=== PATIENT | female | born 1935 | race Asian ===

== ENCOUNTER 2019-07-24 19:46 | Inpatient (IN) | payer OTHER ==
[~2019-07-24] VITALS: Ht 144.8 cm; Wt 56.2 kg
[2019-07-24 19:50] VITALS: Ht 144.8 cm; Wt 56.2 kg
--- NOTE | 2019-07-24 20:04 | NUR ---
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 SON IS AT BEDSIDE FOR TRANSLATION. PATIENT HAS NO C/O AT THIS TIME. PER SON PT WAS AT HOME AND STANDING WHEN SHE FELT DIZZY ALL OF A SUDDEN FAINTED AND WAS UNABLE TO SPEAK FOR 30 MIN S/P FAINTING SPELL. SON WAS ABLE TO CATCH HER MID FALL AND STATED HE LAID HER ON THE BED AND SHE WAS UNABLE TO ANSWER QUESTIONS FOR APPROX 30 MIN. PT CAME TO AFTER AND WAS "BACK TO NORMAL" PER SON. PT IS AAOX4, RESP E/U, DENIES DIZZINESS, WEAKNESS AND ANY PAIN. SON REPORTS HX OF HEP B AND DENIES ANY CARDIAC HX. PT WAS ABLE TO TRANSFER STEADILY FROM TO [facility]. PT CONNECTED TO FULL MONITOR. AWAITING MSE.
[2019-07-24 21:03] LABS: CALCIUM 8.9 mg/dL (8.5-10.1); CHLORIDE SERUM 105 mmol/L (98-107); GLUCOSE SERUM 114 mg/dL (74-106); POTASSIUM SERUM 3.6 mmol/L (3.5-5.1); SODIUM SERUM 140 mmol/L (136-145)
[2019-07-24 21:07] LABS: ALBUMIN 3.6 g/dL (3.4-5.0); ALKALINE PHOSPHATASE 86 U/L (46-116); ALT/SGPT 29 U/L (14-59); AST/SGOT 27 U/L (15-37); BILIRUBIN TOTAL 0.5 mg/dL (0.20-1.00); CHOLESTEROL 192 mg/dL (<200)
[2019-07-24 21:11] LABS: BASOPHIL % 0.3 % (0-2); PLATELET COUNT 214 x10^3mcL (130-400); RED CELL DISTRIBUTION WIDTH 12.8 % (11.5-14.5)
--- NOTE | 2019-07-24 21:14 | NUR ---
PT INSTRUCTED TO PROVIDE URINE SAMPLE VALERY.
--- NOTE | 2019-07-24 22:29 | NUR ---
PT AMBULATED TO RESTROOM BY EVELYN CLAUDIO AND PTS SON. UPON AMBULATION BACK TO BED PER DIVYA GOMEZ PATIENT STOPPED WALKING AND STOPPED RESPONDING TO QUESTIONS. ASSISTED BACK TO BED WITH THE USE OF A WHEELCHAIR. UPON MOVING PT BACK INTO BED PT EXPERIENCED BILATERAL LEG JERKING FOR APPROX 1 SECOND WITH SECRETIONS EXCRETED FROM MOUTH. PT BEGAN TO SPEAK WITH SON AT THIS TIME. POSITIONED IN BED. CONNECTED TO MONITOR, FULL SET OF VITAL SIGNS TAKEN. DR GARCIA AT BEDSIDE TO FURTHER ASSESS.
--- NOTE | 2019-07-24 22:30 | NUR ---
1L NS STARTED AT THIS TIME PER DR GARCIA VERBAL ORDER.
--- NOTE | 2019-07-24 22:44 | NUR ---
2ND PIV ATTEMPT X3 UNSUCCESSFUL. IV TO RFA 20G REMAINS PATENT.
--- NOTE | 2019-07-24 22:49 | NUR ---
LAB AT BEDSIDE.
[2019-07-24 23:07] LABS: UA SPECIFIC GRAVITY 1.025 (1.005-1.035); microscopic required? YES; urine erythrocyte 1+ (NEGATIVE)
--- NOTE | 2019-07-25 00:38 | NUR ---
PT MEDICATED PER EMAR ORDERS. SEE EMAR. PT IS RESTING IN POSITION OF COMFORT. PT RESPS ARE E/U PT HAS SON AT BEDSIDE. CALL LIGHT WITHIN REACH. NO ACD NOTED
--- NOTE | 2019-07-25 01:01 | NUR ---
REPORT GIVEN TO DIVYA CAPONE.
--- NOTE | 2019-07-25 01:28 | NUR ---
US AT BEDSIDE.
[2019-07-25 02:28] VITALS: BP 153/68
--- NOTE | 2019-07-25 03:26 | NUR ---
ADMITTED A PATIENT TO THE FLOOR AND WAS ACCOMPANIED BY THE NURSE AND THE ER PERSONEL AND THE SON,PT WAS TRANSFER TO THE BED,PATIENT WAS MADE COMFORTABLE IN BED AND TELE MONITOR WAS ON AND WAS MADE COMFORATBLE IN BED.ON INMITAIL ASSESSMENT PATIENT IS AAO AND INFORMATION GIVEN BY THE NURSE PATIENT SPEAKS ONLY LATVIAN,PT HAD HL TO THE RT WRIST WITH THE SITE PATENT AND INTACT, REG REG RESP NO SOB,ABDO IS SOFT WITH ACTIVE BOWEL SOUNDS,SKIN IS WARM DRY TO TOUCH WITH RED RASH TO ALL BODY.PT WAS ORIENTED TO THE CALL LIGHT BED CONTROL TELE MONITOR AND THE BATHROOM.BED WAS PUT IN THE LOW POSITIONAND LOCKED,CALL LIGHT MADE CLOSE TO THE PATIENT AND WILL CONTINUE TO MONITOR.
--- NOTE | 2019-07-25 03:33 | NUR ---
INITAOTED THE ORDER OF FLUIDS N/S AT 100CC/HR TO THE RT WRIST WITH LORETTA SITE INTACT NO SWELLING NOTICE AT THIS TIME,SON AT THE BEDSIDE AT THIS TIME,WILL CONTINE TO MONITOR.
--- NOTE | 2019-07-25 05:42 | NUR ---
PT KEEPS TAKING OFF TELE WITH SON IN THE ROOM,PT TELLING PATIENT KEEP IT ON,PT IS FORGETFUL,WILL CONTINUE TO MONITOR.
--- NOTE | 2019-07-25 06:33 | NUR ---
PT HAD A RESTING NIGHT NO CHANGE AT THIS TIME,WILL CONTINUE TO MONITOR.
[2019-07-25 06:56] LABS: CALCIUM 7.5 mg/dL (8.5-10.1); CHLORIDE SERUM 110 mmol/L (98-107); CREATININE SERUM 0.8 mg/dL (0.6-1.0); GLUCOSE SERUM 167 mg/dL (74-106); MAGNESIUM 1.8 mg/dL (1.8-2.4); PHOSPHOROUS 2.3 mg/dL (2.5-4.9); POTASSIUM SERUM 4.3 mmol/L (3.5-5.1); SODIUM SERUM 142 mmol/L (136-145)
--- NOTE | 2019-07-25 07:32 | NUR ---
RECEIVED PATIENT FROM DIVYA CAPONE. PATIENT IN BED, NO COMPLAINTS OF PAIN AT THIS TIME, HOWEVER HAS MILD RASH TO UPPER LEFT EXTREMITIY. SON SG AT BEDSIDE. REVIEWED PLAN FOR TODAY WITH SON, WILL AWAIT FOR RESIDENTS TO COME SEE PATIENT. LAB ALSO NOTIFIED THIS NURSE ABOUT TRENDING HGB FROM 14 TO 12, REPEAT LAB DRAW AT BEDSIDE AT THIS TIME. CALL LIGHT IN REACH.
[2019-07-25 08:08] LABS: BASOPHIL % 0.5 % (0-2); PLATELET COUNT 241 x10^3mcL (130-400); RED CELL DISTRIBUTION WIDTH 12.6 % (11.5-14.5)
[2019-07-25 08:23] VITALS: BP 132/84
--- NOTE | 2019-07-25 10:34 | NUR ---
DR LUNDBERG AND DR LOPEZ IN TO SEE PATIENT. WILL CONSULT CARDIOLOGY AND ORDER ECHOCARDIOGRAM, ALSO MADE AWARE OF RASH AND WILL ORDER IV BENADRYL. ORTHOSTATICS TAKEN. PATIENT ALSO SEEN BY PT AND OBSERVED AMUBLATING DOWN UNIT. CALL LIGHT IN REACH, AVERY BETTENCOURT AT BEDSIDE.
[2019-07-25 11:58] VITALS: BP 129/85
--- NOTE | 2019-07-25 12:22 | NUR ---
P.T. NOTES P.T. EVAL COMPLETED; PATIENT MAY AMBULATE W/ NURSE AD ROBY; BP SUPINE= 128/60, RPCLSUR=980/55, NOMPYNOB=094/67; RN AWARE.
--- NOTE | 2019-07-25 12:34 | NUR ---
PATIENT OBSERVED WANDERING UNIT, SELF REMOVED IV ACCESS, CAREER SERVICES OFFICER, AND PATIENT ID BAND. CONTINUES TO REMOVE PATIENT GOWN AND MULTIPLE ATTEMPTS TO WEAR HOME CLOTHES. INFORMED CHARGE NURSE RINKU AND DR LOPEZ. PO ATIVAN 1 MG ORDERED AT THIS TIME AND ADMINISTERED. ALSO INFORMED DR LOPEZ OF POSSIBLE RESTRAINT INITIATION. ATTEMPTED TO DIAL SON SG, HOWEVER BOTH PHONE NUMBERS IN EMAR WERE INVALID. WILL AWAIT FOR PATIENT SON ARRIVAL.
--- NOTE | 2019-07-25 13:43 | NUR ---
PATIENT ABLE TO BE REORIENTED TO RETURN TO BED. PATIENT SON IN ROOM AT THIS TIME. WILL CONTINUE TO MONITOR FOR CONFUSION AND HYPOTENSION. WILL RESTART IV ONCE PATIENT SETTLED DOWN. CALL LIGHT IN REACH.
--- NOTE | 2019-07-25 14:07 | NUR ---
PATIENT SON NOW STATES THAT PATIENT IS EXPRESSING WANT TO LEAVE HOSPITAL. CHARGE NURSE RINKU NOTIFIED, DR LOPEZ NOTIFIED. DR LOPEZ IN TO SPEAK WITH PATIENT SON ABOUT RISKS FOR SIGNING AMA. PATIENT SON STATES HE WILL WAIT FOR OTHER BROTHER TO ARRIVE TO ROOM AND DISCUSS PLAN OF CARE. ONCE ARRIVED, WILL FURTHER DISCUSS WITH FAMILY AND POSSIBLE AMA. CALL LIGHT IN REACH AT THIS TIME.
[2019-07-25 14:49] LABS: AMPHETAMINE QUAL UR NONE DETECTED (See below)
--- NOTE | 2019-07-25 15:42 | NUR ---
PATIENT SONS IN ROOM. ECHOCARDIOGRAM IN PROGRESS. DISCUSSED WITH BOTH SONS ABOUT CARDIOLOGY CONSULT AND NEED FOR CARDIAC WORKUP. SONS VERBALIZED UNDERSTANDING AND WOULD LIKE TO FOLLOW UP WITH PCP AND OWN AGRICULTURAL CHEMICALS INSPECTOR. RISKS FOR AMA ALREADY DISCUSSED WITH SON SG AND DR LOPEZ. FAMILY STILL ELECTED TO AMA. TELEMETRY UNIT RETURNED TO [facility], NO IV PRESENT, ID BANDS REMOVED. PATIENT AND SONS ESCORTED TO LOBBY WITH THIS NURSE. PATIENT OBSERVED AMBULATING WO DIZZINESS OR HEADACHE, SS WARM, PINK, AND DRY.
== END 2019-07-25 15:45 | disposition left against medical advice (07) | DRG 74 ==
LOC: ED 19:46 → DU 07-25 00:04
PROVIDERS: Emergency Medicine; ADMIT Internal Medicine
DX: G90.9 Disorder of the autonomic nervous system, unspecified (principal); E87.2 Acidosis; R55 Syncope and collapse; B18.2 Chronic viral hepatitis C; L50.0 Allergic urticaria; G30.9 Alzheimer's disease, unspecified; F02.80 Dementia in other diseases classified elsewhere, unspecified severity, without behavioral disturbance, psychotic disturbance, mood disturbance, and anxiety; Z68.26 Body mass index [BMI] 26.0-26.9, adult; Z53.29 Procedure and treatment not carried out because of patient's decision for other reasons
CPT/HCPCS: 82962; G0378; J0696; J1200; J2060; J2930; J7030; J7060; Q0092; Q0163

== ENCOUNTER 2020-01-13 22:32 | Emergency (ER) | payer OTHER ==
[~2020-01-13] VITALS: Ht 142.2 cm; Wt 59.0 kg
[2020-01-13 22:40] VITALS: Ht 142.2 cm; Wt 59.0 kg
[2020-01-14 01:45] VITALS: BP 170/82
== END 2020-01-14 01:45 | disposition home or self-care (01) ==
LOC: ED 22:32
DX: S42.412A Displaced simple supracondylar fracture without intercondylar fracture of left humerus, initial encounter for closed fracture (principal); W18.09XA Striking against other object with subsequent fall, initial encounter; Y93.89 Activity, other specified; Y92.89 Other specified places as the place of occurrence of the external cause; Y99.8 Other external cause status
CPT/HCPCS: J1885; Q0092

== ENCOUNTER → 2020-03-02 | Outpatient (CLI) | payer OTHER ==
[~2020-03-02] MED LIST: ACETAMINOPHEN-H1 TA1 PO
== END | disposition home or self-care (01) ==
LOC: RD 09:10
PROVIDERS: ATTEND Orthopaedic Surgery
DX: S42.402D Unspecified fracture of lower end of left humerus, subsequent encounter for fracture with routine healing (principal); M25.522 Pain in left elbow; X58.XXXD Exposure to other specified factors, subsequent encounter